=== PATIENT | female | born 2000 | race Caucasian/White ===

== ENCOUNTER 2022-03-31 06:43 | Emergency (ER) | payer BC, SELFPAY ==
--- NOTE | ~2022-03-31 | XR_ITS ---
EXAMINATION: XR CHEST CLINICAL INFORMATION: Leukocytosis COMPARISON: None TECHNIQUE: 2 views of the chest were obtained. FINDINGS: No significant abnormality is noted involving the heart, lungs, mediastinum, bony thorax or soft tissues. XR/XR chest 2V IMPRESSION: No acute disease.
[2022-03-31 07:09] VITALS: BP 130/86; PULSE 106; RESP 16; TEMP 36.6; O2SAT 99; BMI 23.8
--- NOTE | 2022-03-31 07:42 | ED.GENADULT ---
HPI - General Adult General Chief complaint: Overdose Stated complaint: medication reaction multip issues Time Seen by Provider: 03/31/22 07:35 Source: patient Mode of arrival: ambulatory Limitations: no limitations History of Present Illness HPI narrative: This is a 21 years old of female presented to the emergency department doing multiple somatic complaints which include malaise, shaky, anxious, denies any fever chills vomiting and diarrhea abdominal pain chest pain. She states that she took by the mistake extra 50 mg of lamotrigine Onset (ago): hour(s) (8) Radiation: non-radiation Severity: mild Pain Consistency: now resolved Relieving factors: none Related Data Allergies Allergy/AdvReac Type Severity Reaction Status Date / Time No Known Allergies Allergy Verified 03/31/22 07:09 Review of Systems Constitutional: Constitutional: Reports no additional constitutional complaints Cardiovascular: Cardiovascular: Reports no additional cardiovascular complaints Psychiatric: Psychiatric: Reports other (anxious) [facility] Past Medical History [facility] Narrative: bipolar disorder Social History Social History Alcohol intake: never Smoked in Last 30 Days: No Use of substances other than those prescribed or required for medical reasons: Yes Substance Use Type: Marijuana Substance Use Frequency: Occasionally Advance Directives: No Advance Directives Information Provided: No Patient : No Physical Exam ED Vital Signs: Vital Signs - 24 hr 03/31/22 07:09 03/31/22 09:07 03/31/22 09:55 Temperature 97.9 F 98.0 F 98.2 F Pulse Rate 106 H 70 101 H Respiratory Rate 16 20 20 Blood Pressure 130/86 121/66 116/78 Pulse Oximetry 99 98 98 Oxygen Delivery Method Room Air Room Air Room Air BMI result Body Mass Index 23.8 Const Other: She looks well she is nontoxic no distress General: healthy appearing, comfortable, no acute distress, well developed, alert, awake and Physically active Nutritional Appearance: average body habitus Orientation/consciousness: patient oriented x3 Limitations: no limitations HENMT Head: Yes normal to inspection General nose exam: Normal external nose present Face and sinus: Yes normal facial exam Mouth: Normal oral and palatal mucosa present Neck Neck: Yes normal visual inspection, Yes full ROM, Yes no meningeal signs and Yes supple Chest Chest palpation & inspection: normal inspection of the chest Resp Effort & Inspection: normal respiratory effort Auscultation: clear to auscultation bilaterally Cardio Jugular venous distension: no JVD Rate: regular rate Rhythm: regular rhythm GI Inspection: Yes normal to inspection Palpation (GI): Soft to palpation, not firm and nontender Auscultation: normal bowel sounds General: Yes no CVA tenderness Back/Spine/Pelvis Back: no CVA tenderness Skin General skin exam: no rashes or lesions noted, elasticity normal and turgor normal Lesions: no lesions Rashes: no rashes Wounds: no wounds Neuro General: patient oriented x3 and no meningeal signs Cranial nerves: Yes CN's II-XII intact bilaterally Cognition (Neuro): normal cognition Gait exam (Neuro): Normal gait present Motor exam (neuro): 5/5 motor strength present throughout Extrem General: Yes normal to inspection and Yes full ROM Course Reevaluation(s) Reevaluation #1: Patient remain no toxic comfortable without any evidence of fever, normotensive, white count was noted 21 K this was disclose as well to the patient. I recommended to patient that we do blood culture and chest x-ray as well. She is well enough to go home clinically she looks well. I also told to return tomorrow to recheck I will be working tomorrow morning Time: 09:19 Reevaluation #2: I also discussed LP she had mild JULIAN but no fever,pt refuses LP ,nurse Adrian Blackwood present during the conversation ,she understand risks Time: 09:30 Medical Decision Making Medical Decision Making MDM Narrative: Patient presented with not feeling well, anxious we will get blood work including CBC chemistry hCG drug screen 930 AM patient remained afebrile nontoxic normotensive heart rate 70 she is feeling well at this point she has no complain, [place] [id number] we did blood culture chest x-ray UA no source of infection. She has no abdominal pain and neck is supple full range of motion.I dicussed LP she refuses She wants to go home .. I offered the patient to return tomorrow for recheck repeat white count. Differential Diagnosis Differential Diagnoses: The differential diagnosis associated with the presentation includes Anxiety/anemia/viral illness Admission/Observation Consideration of admission/observation: Escalation of care including admission/observation considered Lab Data [facility] Lab Attestation statement: I reviewed the patient's lab results. 03/31/22 07:55 03/31/22 07:55 Labs: Lab Results 03/31/22 03/31/22 03/31/22 Range/Units 07:55 07:55 08:32 WBC 21.2 H (4.8-10.8) X10*3/uL RBC 4.35 (4.20-5.50) X10*6/uL Hgb 12.8 (12.0-16.0) g/dl Hct 37.9 (37.0-47.0) % MCV 87.1 (80.0-98.0) fL MCH 29.4 (27.0-33.0) pg MCHC 33.8 (31.0-35.0) g/dl RDW 13.2 (11.0-16.0) % Plt Count 346 (160-400) X10*3/uL MPV 10.1 (9.4-12.3) fL Immature Gran % (Auto) 0.5 H (0.0-0.4) % Neut % (Auto) 83.2 H (45-73) % Lymph % (Auto) 11.7 L (20-40) % [place] % (Auto) 4.2 (2-11) % Eos % (Auto) 0.1 (0-4) % Baso % (Auto) 0.3 (0-2) % Lymph # (Auto) 2.5 (1.2-4.9) X10*3/uL [place] # (Auto) 0.9 (0.1-1.2) X10*3/uL Eos # (Auto) 0.0 (0.0-0.4) X10*3/uL Baso # (Auto) 0.1 (0.0-0.2) X10*3/uL Abs Immat Gran (auto) 0.11 H (0.00-0.03) X10*3/uL Absolute Neuts (auto) 17.7 H (2.0-8.3) x10*3/uL Absolute Nucleated RBC 0.000 (0.0-0.012) X10*3/uL Nucleated RBC % (auto) 0.0 (0.0-0.2) /100WBC Sodium 136 (135-145) mmol/L Potassium 4.1 (3.3-5.1) mmol/L Chloride 100 (96-108) mmol/L Carbon Dioxide 25 (22-29) mmol/L Anion Gap 15 (12-20) BUN 8 L (9-16) mg/dL Creatinine 0.77 (0.5-1.4) mg/dL Estim Creat Clear Calc 92.9 Estimated GFR > 60 Random Glucose 95 (60-115) mg/dL Calcium 9.2 (8.4-10.2) mg/dL Total Bilirubin 0.3 (0.0-1.0) mg/dL AST 13 (5-31) U/L ALT 10 (0-31) U/L Alkaline Phosphatase 54 (39-117) U/L Total Protein 6.7 (6.5-8.0) g/dL Albumin 4.0 (3.5-5.0) g/dL Beta HCG, Quant < 2 mIU/mL Urine Color Urine Appearance Urine pH (5.0-9.0) Ur Specific [place] (1.005-1.025) Urine Protein (Neg-Trace) mg/dL Urine Glucose (UA) (Negative) mg/dL Urine Ketones (Negative) mg/dL Urine Blood (Negative) Urine Nitrite (Negative) Ur Leukocyte Esterase (Negative) Urine RBC (0-2) /HPF Urine WBC (0-5) /HPF Ur Squamous Epith Cells (0-2) /HPF Urine Bacteria (None Seen) Hyaline Casts (0-2) /LPF Urine Opiates Screen Not Detected (Not Detect) Urine Fentanyl Screen Not Detected (Not Detect) Ur Barbiturates Screen Not Detected (Not Detect) Ur Phencyclidine Scrn Not Detected (Not Detect) Ur Amphetamines Screen Not Detected (Not Detect) U Benzodiazepines Scrn Not Detected (Not Detect) Urine Cocaine Screen Not Detected (Not Detect) U Marijuana (THC) Screen POSITIVE H (Not Detect) 03/31/22 Range/Units 08:32 WBC (4.8-10.8) X10*3/uL RBC (4.20-5.50) X10*6/uL Hgb (12.0-16.0) g/dl Hct (37.0-47.0) % MCV (80.0-98.0) fL MCH (27.0-33.0) pg MCHC (31.0-35.0) g/dl RDW (11.0-16.0) % Plt Count (160-400) X10*3/uL MPV (9.4-12.3) fL Immature Gran % (Auto) (0.0-0.4) % Neut % (Auto) (45-73) % Lymph % (Auto) (20-40) % [place] % (Auto) (2-11) % Eos % (Auto) (0-4) % Baso % (Auto) (0-2) % Lymph # (Auto) (1.2-4.9) X10*3/uL [place] # (Auto) (0.1-1.2) X10*3/uL Eos # (Auto) (0.0-0.4) X10*3/uL Baso # (Auto) (0.0-0.2) X10*3/uL Abs Immat Gran (auto) (0.00-0.03) X10*3/uL Absolute Neuts (auto) (2.0-8.3) x10*3/uL Absolute Nucleated RBC (0.0-0.012) X10*3/uL Nucleated RBC % (auto) (0.0-0.2) /100WBC Sodium (135-145) mmol/L Potassium (3.3-5.1) mmol/L Chloride (96-108) mmol/L Carbon Dioxide (22-29) mmol/L Anion Gap (12-20) BUN (9-16) mg/dL Creatinine (0.5-1.4) mg/dL Estim Creat Clear Calc Estimated GFR Random Glucose (60-115) mg/dL Calcium (8.4-10.2) mg/dL Total Bilirubin (0.0-1.0) mg/dL AST (5-31) U/L ALT (0-31) U/L Alkaline Phosphatase (39-117) U/L Total Protein (6.5-8.0) g/dL Albumin (3.5-5.0) g/dL Beta HCG, Quant mIU/mL Urine Color Yellow Urine Appearance Clear Urine pH 7.5 (5.0-9.0) Ur Specific [place] 1.015 (1.005-1.025) Urine Protein Negative (Neg-Trace) mg/dL Urine Glucose (UA) Negative (Negative) mg/dL Urine Ketones 15 (Negative) mg/dL Urine Blood Negative (Negative) Urine Nitrite Negative (Negative) Ur Leukocyte Esterase Negative (Negative) Urine RBC 3-5 H (0-2) /HPF Urine WBC 0-5 (0-5) /HPF Ur Squamous Epith Cells 0-2 (0-2) /HPF Urine Bacteria None Seen (None Seen) Hyaline Casts 0-2 (0-2) /LPF Urine Opiates Screen (Not Detect) Urine Fentanyl Screen (Not Detect) Ur Barbiturates Screen (Not Detect) Ur Phencyclidine Scrn (Not Detect) Ur Amphetamines Screen (Not Detect) U Benzodiazepines Scrn (Not Detect) Urine Cocaine Screen (Not Detect) U Marijuana (THC) Screen (Not Detect) Independent Interpretation I performed an independent interpretation of an: Plain X-Ray Interpretation: normal Radiology Impression Discussion of test interpretation with radiology: I have reviewed the radiologist's reading. Radiologist Impression: cc: Julio Cohen MD~ EXAMINATION: XR CHEST CLINICAL INFORMATION: Leukocytosis COMPARISON: None TECHNIQUE: 2 views of the chest were obtained. FINDINGS: No significant abnormality is noted involving the heart, lungs, mediastinum, bony thorax or soft tissues. XR/XR chest 2V IMPRESSION: No acute disease. Dictated By: Jorge Pope MD Signed By: <Electronically signed by Jorge Pope MD in [place]> 03/31/22921 Discharge Plan Discharge Clinical Impression: Leukocytosis Patient Disposition: Home, Self-Care Instructions: Leukocytosis (ED) Additional Instructions: Follow-up with your primary care physician, your white count was elevated 21,000, this needs to be recheck. Return to emergency room if you have a fever chills. Also if you come back tomorrow I will be working and I can recheck you and I will repeat the white count. Referrals: Physician,None [Primary Care Provider] - 3 days Interventions: Beckham-Suicide Risk Severity Scale Last Done: 03/31/22 09:07 ED Discharge Assessment Last Done: 03/31/22 09:56 Discharge Date/Time: 03/31/22 09:57
[2022-03-31 07:58] LABS: MANUAL DIFF FLAG NO
[2022-03-31 08:06] LABS: Basophils Absolute Auto 0.1 X10*3/uL (0.0-0.2); Basophils Percent Auto 0.3 % (0-2); Eosinophils Percent Auto 0.1 % (0-4); Hematocrit 37.9 % (37.0-47.0); Hemoglobin 12.8 g/dl (12.0-16.0); Imm Gran Abs Auto 0.11 X10*3/uL (0.00-0.03); Imm Gran Pct Auto 0.5 % (0.0-0.4); Lymphocytes Absolute Auto 2.5 X10*3/uL (1.2-4.9); Lymphocytes Percent Auto 11.7 % (20-40); Mean Corpuscular HGB Conc 33.8 g/dl (31.0-35.0); Mean Corpuscular Hemoglobin 29.4 pg (27.0-33.0); Mean Corpuscular Volume 87.1 fL (80.0-98.0); Mean Platelet Volume 10.1 fL (9.4-12.3); Monocytes Absolute Auto 0.9 X10*3/uL (0.1-1.2); Monocytes Percent Auto 4.2 % (2-11); Neutrophils Absolute Auto 17.7 x10*3/uL (2.0-8.3); Neutrophils Percent Auto 83.2 % (45-73); Platelet Count 346 X10*3/uL (160-400); Red Blood Count 4.35 X10*6/uL (4.20-5.50); Red Cell Distribution Width 13.2 % (11.0-16.0); White Blood Count 21.2 X10*3/uL (4.8-10.8)
[2022-03-31 08:34] LABS: Alanine Aminotransferase 10 U/L (0-31); Alkaline Phosphatase 54 U/L (39-117); Anion Gap 15 (12-20); Aspartate Amino Transferase 13 U/L (5-31); Bilirubin Total 0.3 mg/dL (0.0-1.0); Blood Urea Nitrogen 8 mg/dL (9-16); Calcium 9.2 mg/dL (8.4-10.2); Carbon Dioxide 25 mmol/L (22-29); Chloride 100 mmol/L (96-108); Creatinine Clr Calc Pharmacy 92.9; Estimated Glomerular Filt Rate > 60; Glucose Random 95 mg/dL (60-115); HCG Quantitative < 2 mIU/mL; Potassium 4.1 mmol/L (3.3-5.1); Sodium 136 mmol/L (135-145); Total Protein 6.7 g/dL (6.5-8.0)
[2022-03-31 08:41] LABS: Appearance Urine Clear; Color Urine Yellow; Glucose Urine UA Negative (Negative); Leukocyte Esterase Urine Negative (Negative); Nitrite Urine Negative (Negative); PH 7.5 (5.0-9.0); Specific Gravity - Urine 1.015 (1.005-1.025); Urine Blood Negative (Negative); Urine Ketones 15 mg/dL (Negative); Urine Protein Negative (Neg-Trace)
[2022-03-31 08:46] LABS: Bacteria Urine None Seen (None Seen); Hyaline Casts Urine 0-2 /LPF (0-2); Squamous Epithelial Cell Urine 0-2 /HPF (0-2); WBC Urine 0-5 /HPF (0-5)
[2022-03-31 08:48] LABS: Amphetamine Screen Urine Not Detected (Not Detect); Barbiturates, Urine Not Detected (Not Detect); Benzodiazepines Screen Urine Not Detected (Not Detect); Cannabinoid Screen Urine POSITIVE (Not Detect); Cocaine Screen Urine Not Detected (Not Detect); Fentanyl, urine Not Detected (Not Detect); Opiate Screen Urine Not Detected (Not Detect); Phencyclidine Screen Urine Not Detected (Not Detect)
[2022-03-31 09:07] VITALS: BP 121/66; PULSE 70; RESP 20; TEMP 36.7; O2SAT 98
--- NOTE | 2022-03-31 09:19 | PC.NURSE ---
pt requiring cxr and blood cx d/t elevated wbc, denies any pain. afebrile.
[2022-03-31 09:55] VITALS: BP 116/78; PULSE 101; RESP 20; TEMP 36.8; O2SAT 98
--- NOTE | 2022-03-31 09:55 | PC.NURSE ---
pt and provider speaking at bedside, pt given option for lumbar puncture by provider d/t elevated wbc, pt adamantly refusing, asking to be dc home at this time. vss.
[2022-04-02 08:46] LABS: Glucose, Whole Blood 114 mg/dL (60-115)
== END 2022-03-31 09:57 | disposition home or self-care (01) ==
PROVIDERS: Emergency Provider Emergency Medicine
DX: D72.829 Elevated white blood cell count, unspecified (principal); R51.9 Headache, unspecified; F41.9 Anxiety disorder, unspecified; F12.90 Cannabis use, unspecified, uncomplicated; Z79.899 Other long term (current) drug therapy
CPT/HCPCS: 36415; 71046; 80053; 80307; 81001; 82947; 84702; 85025; 87040; 99283; 99284